=== PATIENT | female | born 1995 ===

== ENCOUNTER 2017-10-21 17:13 | Inpatient (IN) | payer OTHER ==
[~2017-10-21] VITALS: Ht 139.7 cm; Wt 108.0 kg
--- NOTE | ~2017-10-21 | OR ---
[facility] [address] [place], [place] [address] Draft DATE OF OPERATION: 10/21/2017 SURGEON: Noman Rust DO PREOPERATIVE DIAGNOSIS: Retained placenta. POSTOPERATIVE DIAGNOSIS: Retained placenta delivered. PROCEDURES PERFORMED: 1. A manual extraction of placenta. 2. Uterine curettage. SURGEON: Noman Rust D.O. DATA MANAGEMENT ENGINEER: Kb Chavez MD. ANESTHESIA: General. ESTIMATED BLOOD LOSS: 600 mL. SPECIMEN: Placenta. FINDINGS: Retained placenta was removed completely with manual digital extraction in gentle banjo. The uterine cavity fills smooth without any evidence of retained membranes or placental tissue. There is some slight thinning of the myometrium near the fundus in the midline. Hemostasis at the end of procedure and the fundus is firm. COMPLICATIONS: None. INDICATIONS: Ms. Brar is a pleasant 22-year-old, G2, now P2, female who presented PATIENT NAME: LADONNA BRAR OPERATIVE REPORT DATE OF : [birth year] REPORT #: [id number] PHYSICIAN: NOMAN RUST DO PCP: NO PRIMARY CARE PHYSICIAN REPORT IS CONFIDENTIAL AND NOT TO BE RELEASED WITHOUT AUTHORIZATION [facility] [address] [place], [place] [address] Draft in spontaneous labor and progressed and had an uncomplicated . Following delivery, the placenta did not easily deliver with expectant management or active management of the 3rd stage of the labor. With gentle traction, the cord avulsed from the placenta and manual extraction was attempted by myself and by Dr. Jordan in the delivery room. Bleeding was scant and the patient tolerated the procedure with an intrathecal procedure anesthetic. However, since manual extraction was not easily accomplished in the labor and delivery room, decision was made to proceed with curettage and manual extraction in the operating room. Risks, benefits, and alternatives were discussed in detail with the patient. Consents were signed and all questions were answered. TECHNIQUE: The patient was taken to the operating room where a time-out was performed to confirm correct patient and correct procedure. A 2nd large-bore IV was placed and type and screen was performed. Ancef 2 g were given preoperatively as well as tranexamic acid 1 g IV. Bleeding was scant. The patient was then prepped and draped in the dorsal lithotomy position with her feet in Yellofin stirrups. ICPs running and no preop heparin were indicated. A Olmos catheter had been previously inserted. A weighted speculum was placed in the vagina and the placental membranes were noted coming through the os. The surgeon's hand was placed through the os and into the uterine cavity and gentle dissection between the placenta and the decidua was attempted. However, this did not easily accomplished delivery of placenta. The placental membranes were grasped with ring forceps and gentle teasing of the membranes was attempted again with no significant progress. The placenta was then manually extracted with the surgeon's hand. The surgeon's hand was then placed again into the uterine cavity and additional placental tissue was noted in the midline of the fundus. This was gently extracted with the surgeon's hand. No additional placental tissue was noted. A banjo curette was then gently inserted into the uterine cavity in the surgeon's hand to assure intrauterine placement. Very gentle circumferential curettage was performed with a banjo that yielded no significant additional placental tissue. Her bimanual massage showed minimal bleeding and the fundus firmed nicely. Pitocin 50 units and 1 L of LR was administered to enhance uterine contractions and Cytotec 1000 mg was placed per rectum. Bleeding was minimal and the patient was then taken to the PACU in good and stable condition. Sponge, needle, and instrument count was correct x2 at the end of the procedure. Dr. Chavez was present and participated in all portions of the procedure. Noman Rust DO PATIENT NAME: FORDLADONNA OPERATIVE REPORT DATE OF : [birth year] REPORT #: [id number] PHYSICIAN: NOMAN RUST DO PCP: NO PRIMARY CARE PHYSICIAN REPORT IS CONFIDENTIAL AND NOT TO BE RELEASED WITHOUT AUTHORIZATION [address] [place] [address] Draft SHERICE/BETY /[id number] Copies: ~ PATIENT NAME: FORDLADONNA OPERATIVE REPORT DATE OF : [birth year] REPORT #: [id number] PHYSICIAN: NOMAN RUST DO PCP: NO PRIMARY CARE PHYSICIAN REPORT IS CONFIDENTIAL AND NOT TO BE RELEASED WITHOUT AUTHORIZATION
--- NOTE | 2017-10-21 23:36 | NUR ---
10/21/17 2336 Rosmery Emanuel 2317- PT ARRIVES TO PACU ON 6L VIA MASK. OXYGEN SAT HIGH 90'S TO 100% ON THIS. PT RESPONSIVE TO VOICE. PT IS COUGHING FREQUENTLY. ENCOURAGED PT TO CONTINUE TO COUGH. LR WITH 50 OF PITOCIN INFUSING. IV SITES WNL. 2320- PT HAS SMALL AMOUNT OF DRAINAGE. PT REPORTS NO NAUSEA OR PAIN. NATYJASMINA AT THE BEDSIDE LISTENING TO THE PT'S LUNGS. LUNGS CLEAR THROUGHOUT.
== END 2017-10-23 16:30 | disposition home or self-care (01) | DRG 767 ==
LOC: FBCO 17:13 → FBC 17:39 → MS 10-22 01:45 → FBC 10-22 01:46 → FBCO 10-22 09:43 → FBC 10-23 16:30
PROVIDERS: ADMIT Obstetrics & Gynecology
PROC: 10D17Z9 Manual Extraction of Products of Conception, Retained, Via Natural or Artificial Opening (ICD-10-PCS; 2017-10-21)
PROC: 10907ZC Drainage of Amniotic Fluid, Therapeutic from Products of Conception, Via Natural or Artificial Opening (ICD-10-PCS; 2017-10-21)
PROC: 3E0S3BZ Introduction of Anesthetic Agent into Epidural Space, Percutaneous Approach (ICD-10-PCS; 2017-10-21)
PROC: 00HU33Z Insertion of Infusion Device into Spinal Canal, Percutaneous Approach (ICD-10-PCS; 2017-10-21)
PROC: 10E0XZZ Delivery of Products of Conception, External Approach (ICD-10-PCS; principal; 2017-10-21 23:00)
DX: O70.1 Second degree perineal laceration during delivery (principal); Z37.0 Single live birth; D62 Acute posthemorrhagic anemia; O73.0 Retained placenta without hemorrhage; Z3A.39 39 weeks gestation of pregnancy; O90.81 Anemia of the puerperium
CPT/HCPCS: 00940; 01960; 01996; 36415; 85025; 85027; 86850; 86900; 86901; J0690; J1100; J2250; J2405; J2540; J2590; J2795; J3010; J7120

== ENCOUNTER 2024-07-06 06:50 | Day surgery (SDC) | payer OTHER ==
[2024-07-01 15:27] VITALS: BP 125/88
[~2024-07-06] VITALS: Ht 165.1 cm; Wt 98.2 kg
--- NOTE | ~2024-07-06 | OR ---
[address] [address] Draft DATE OF OPERATION: 07/06/2024 SURGEON: Noman Rust DO PREOPERATIVE DIAGNOSES: 1. Abnormal uterine bleeding. 2. Desires salpingectomy. 3. Desires Nexplanon removal. POSTOPERATIVE DIAGNOSES: 1. Abnormal uterine bleeding. 2. Desires salpingectomy. 3. Desires Nexplanon removal. 4. Asherman syndrome. 5. Dzxp-Scyl-Qqzvpi. PROCEDURES PERFORMED: 1. Hysteroscopic dilation and curettage. 2. Polypectomy. 3. Laparoscopic bilateral salpingectomy. 4. Nexplanon removal. REHABILITATION PROGRAM COORDINATOR: None. ANESTHESIA: General. ESTIMATED BLOOD LOSS: 10 mL. FLUIDS DEFICIT: 90 mL. SPECIMENS: 1. Endometrial curettings. 2. Bilateral fallopian tubes. COMPLICATIONS: None. PATIENT NAME: LADONNA BRAR OPERATIVE REPORT DATE OF : [birth year] REPORT #: [id number] PHYSICIAN: ONMAN RUST (BRITTANY) PCP: NO PRIMARY CARE PHYSICIAN REPORT IS CONFIDENTIAL AND NOT TO BE RELEASED WITHOUT AUTHORIZATION [facility] [address] [place] [address] Draft FINDINGS: Normal external genitalia with normal clitoris, urethral meatus, bilateral Likely's and Bartholin's glands. Normal vagina and cervix. On hysteroscopy, normal cervical os, cervical canal. The endometrium is thickened with multiple polyps. There is also a large central/fundal defect consistent with either Asherman syndrome or arcuate uterus. Polyps and endometrium were sampled and no intervention on the Asherman lesion was attempted. On laparoscopy, normal stomach, uterus, and ovaries bilaterally. Vtie-Ijtd-Lthzml violin string noted around the liver capsule and some light violin string type adhesions of the bilateral fallopian tubes to the mesosalpinx. Hemostasis after salpingectomy. Nexplanon was noted malpositioned, low in the right upper arm that was removed without difficulty. Complications none. INDICATIONS: Mrs. Brar is a very pleasant 29-year-old female with abnormal uterine bleeding, desiring salpingectomy and removal of Nexplanon. The patient was consented for hysteroscopy, D and C, polypectomy, laparoscopic bilateral salpingectomy, Nexplanon removal. Risks, benefits, and alternatives were discussed in detail with the patient. The patient understands and wished to proceed with the procedure. DESCRIPTION OF PROCEDURE: The patient was taken the OR. A time-out was performed to confirm correct patient, correct procedure. General anesthesia was adequately established. The patient was prepped and draped in the dorsal lithotomy position with feet in Yellofin stirrups. ICPs were on and running and no preoperative antibiotics or heparin was indicated. Olmos catheter was inserted. Weighted speculum was placed in the vagina and the anterior lip of the cervix was grasped with Allis clamp. The cervix was gently dilated using Hegar dilators. An operative hysteroscope was then placed in the cervical os and advanced under direct visualization to the uterine cavity. Normal os and cervical canal was noted. However, the uterine cavity was abnormal with thickened endometrium, bilateral scattered endometrial polyps, and central fundal defect consistent with either Asherman syndrome or arcuate uterus. MyoSure Lite device was selected and advanced into the uterine cavity. Circumferential curettage and polypectomy was performed. As discussed previously prior to the procedure with the patient and her mother, no attempt at correction of synechiae was performed. The hysteroscope was withdrawn and the surgeon's gloves were changed. Attention was turned to the abdomen. The base of the umbilicus was infiltrated with 0.25% Marcaine with epinephrine and a 5 mm stab incision was made with #11 blade at the base of the umbilicus. A 5 mm trocar was then placed under direct visualization without complication. The 5 mm personalized living assistant ports were placed in the right lower and left lower quadrants under direct visualization without complication. Survey of the abdomen and pelvis was performed. Fcbm-Aadu-Gaeums violin strings were noted on the liver capsule and some light adhesions were noted from the PATIENT NAME: LADONNA BRAR OPERATIVE REPORT DATE OF : [birth year] REPORT #: [id number] PHYSICIAN: NOMAN RUST (BRITTANY) DO PCP: NO PRIMARY CARE PHYSICIAN REPORT IS CONFIDENTIAL AND NOT TO BE RELEASED WITHOUT AUTHORIZATION [facility] [address] [place], [place] [address] Draft fallopian tube to the mesosalpinx. The remainder of the uterus, tubes, ovaries, and pelvis appeared normal. The left fallopian tube was grasped at the fimbriated end elevated and adhesions were gently lysed using the LigaSure device. The tube was then divided along the mesosalpinx with the LigaSure device and amputated at the cornu with excellent hemostasis. The fallopian tube was removed, sent to Pathology for further evaluation. The process was repeated on the right without difficulty and the pelvis was irrigated with excellent hemostasis appreciated. Pneumoperitoneum was reduced. Trocars were removed and trocar sites were repaired using 3-0 Vicryl Rapide. Attention was then turned to the right arm. The arm was prepped and draped sterilely. The end of the Nexplanon was palpated and a 2-3 mm stab incision was made using 11 blade. The end of the Nexplanon was coaxed through the incision, grasped with hemostats and removed without difficulty. The incision was ligated with 3-0 Vicryl Rapide and closed with Steri-Strips and Coban. The patient was then taken to PACU in good and stable condition after removal of the Olmos catheter. Sponge, needle, and instrument counts correct x2 at the end of the procedure. DO SHERICE Roque/MODL /[id number] Copies: ~ PATIENT NAME: LADONNA BRAR OPERATIVE REPORT DATE OF : [birth year] REPORT #: [id number] PHYSICIAN: NOMAN RUST DO (JD) PCP: NO PRIMARY CARE PHYSICIAN REPORT IS CONFIDENTIAL AND NOT TO BE RELEASED WITHOUT AUTHORIZATION
[~2024-07-06 06:50] MED LIST: LACTATED RINGER'S 1,000 ML IV SCH
[2024-07-06] MEDS ORDERED: LIDOCAINE HCL 1% 5 ML SDV INJ ONE (07:00)
[2024-07-06] MEDS ORDERED: IBLOOD GLUCOSE TEST STRIP 1 EA TEST VI PRN ×2 (07:00→10:15)
[2024-07-06 07:01] VITALS: BP 107/58
[2024-07-06] MEDS ORDERED: TYLENOL325 MG PO (07:03)
[2024-07-06] MEDS ORDERED: IBUPROFEN400 MG PO (07:04)
--- NOTE | 2024-07-06 07:50 | NUR ---
PT NOT AVAILABLE FOR VISIT. PROVIDED PRAYER.
[2024-07-06] MEDS ORDERED: ROCURONIUM BROMIDE 50 MG/5 ML SYR ONE (09:14)
[2024-07-06] MEDS ORDERED: LIDOCAINE HCL 2% 5 ML SDV ONE (09:14)
[2024-07-06] MEDS ORDERED: fentaNYL citrate 100 MCG/2 ML VIAL ONE ×2 (09:14→10:49)
[2024-07-06] MEDS ORDERED: KETOROLAC TROMETHAMINE 30 MG/ML VIAL ONE (09:14)
[2024-07-06] MEDS ORDERED: SUGAMMADEX SODIUM 200 MG/2 ML ML ONE (09:14)
[2024-07-06] MEDS ORDERED: ondansetron HCL 4 MG/2 ML VIAL ONE (09:14)
[2024-07-06] MEDS ORDERED: DEXAMETHASONE SOD PHOS 4 MG/ML VIAL ONE (09:14)
[2024-07-06] MEDS ORDERED: propofoL 200 MG/20 ML VIAL ONE (09:14)
[2024-07-06] MEDS ORDERED: ACETAMINOPHEN 1,000 MG/100 ML VIAL ONE (09:14)
[2024-07-06] MEDS ORDERED: MIDAZOLAM HCL 2 MG/2 ML VIAL ONE (09:15)
[2024-07-06] MEDS ORDERED: dexmedeTOMIDine HCl 200 MCG/2 ML VIAL ONE (09:16)
[2024-07-06] MEDS ORDERED: LIDOCAINE HCL 2% 20 MG/ML VIAL INJ ONE (09:17)
[2024-07-06] MEDS ORDERED: KETAMINE in NS 50 MG/5 ML SYR ONE (09:17)
[2024-07-06] MEDS ORDERED: PROCHLORPERAZINE EDISYLATE 10 MG/2 ML VIAL IV PRN (10:15)
[2024-07-06] MEDS ORDERED: droPERidol 5 MG/2 ML VIAL IV PRN (10:15)
[2024-07-06] MEDS ORDERED: NALOXONE HCL 0.4 MG SYR IV PRN ×2 (10:15→11:15)
[2024-07-06] MEDS ORDERED: fentaNYL citrate 50 MCG/ML SDV IV PRN (10:15)
[2024-07-06] MEDS ORDERED: HYDROmorphone HCL 1 MG/ML SYR IV PRN (10:15)
[2024-07-06] MEDS ORDERED: ondansetron HCL 4 MG/2 ML VIAL IV PRN (10:15)
[2024-07-06] MEDS ORDERED: LACTATED RINGER'S 1,000 ML IV ONE (10:26)
[2024-07-06] MEDS ORDERED: FAMOTIDINE 20 MG/ 2 ML VIAL IV PRN (11:15)
[2024-07-06] MEDS ORDERED: MAGNESIUM HYDROXIDE/AL HYDROX 30 ML CUP PO PRN (11:15)
[2024-07-06] MEDS ORDERED: SIMETHICONE 80 MG CHEW PO PRN (11:15)
[2024-07-06] MEDS ORDERED: HYDROCODONE/ACETA 5/325 TAB PO PRN (11:15)
--- NOTE | 2024-07-06 11:16 | NUR ---
07/06/24 1116 Sheets,Bere 1051 PT ARRIVED TO PACU WITH ORAL AIRWAY IN PLACE, RESP EVEN AND UNLABORED ON 6L VIA MASK. 1101 PT REACTIVE TO TACTILE STIMULI AND ORAL AIRWAY REMOVED. PT REORIENTED TO PACU AND DENIES CONCERNS, NO PAIN OR NAUSEA. WARM BLACKETS GIVEN PER REQUEST AND HOB INCREASED SLIGHTLY. 1102 O2 MASK REMOVED. DEEP BREATHING AND COUGHING ENCOURAGED. 1112 O2 DECREASED TO 88% WHILE ASLEEP, 2L NC PLACED. PT WAKES EASILY AND DEEP BREATHING ENCOURAGED. O2 INCREASED TO MID 90S.
[2024-07-06 11:33] VITALS: BP 107/80
--- NOTE | 2024-07-06 12:12 | NUR ---
1130 PT ARRIVED TO DAY SURGERY RM 12 VIA STREACHER. PT SITTING UPRIGHT, AWAKE AND ORIENTED. PT REMOVED FROM 2L O2 VIA NASAL CANULLA DUE TO PT OXGYEN AT 100%. PT BREATHING EQUAL AND UNLABORED. PT REPORTS NO PAIN AT THIS TIME. IV ASSESSED. VITALS TAKEN. PT RESTING IN BED WITH WATER AT BEDSIDE AND CRACKERS. PT BED LOW AND LOCKED AND CALL LIGHT WITHIN REACH. 1210 CHECKED ON PT. PT REPORTING NO PAIN OR NAUSEA AT THIS TIME. PT REPORTS NO URGE TO URINATE AT THIS TIME. WATER REFILLED. PT MOM AT BEDSIDE. BED LOW AND LOCKED AND CALL LIGHT WITHIN REACH.
[2024-07-06 12:29] VITALS: BP 115/74
--- NOTE | 2024-07-06 12:33 | NUR ---
1230 HOURLY ROUNDING DONE WITH PT. VITALS TAKEN. IV ASSESSED. PT REPORTS NO PAIN OR NAUSEA AT THIS TIME. PT REPORTS NOT MUCH URGE TO URINATE YET. CALL LIGHT WITHIN REACH. PERSONAL ITEMS WITHIN REACH. PT MOM IN ROOM.
[2024-07-06] MEDS ORDERED: SIMETHICONE 80 MG CHEW PO SCH (13:00)
--- NOTE | 2024-07-06 13:00 | NUR ---
1235 PT REPORTS WANTING TO ATTEMPT TO URINATE. PT ABLE TO AMBULATE TO BATHROOM WITH STEADY GAIT. PT ABLE TO VOID 100 MLS OF CLEAR YELLOW URINE. PT ABLE TO AMBULATE BACK TO ROOM. PT GETTING CHANGED WITH ASSISTANCE OF PT MOM. 1245 PT IS DRESSED. IV REMOVED FOR DISCHARGE. DISCHARGE INFORMATION GONE OVER WITH PT AND MOTHER. NO QUESTIONS AT THIS TIME. 1253 PT DISCHARGED FROM DAY SURGERY VIA WHEELCHAIR TO THE FRONT OF THE HOSPITAL TO PT'S MOTHER'S CAR.
[2024-07-06] MEDS ORDERED: SEVOFLURANE 250 ML BTL INH ONE (15:57)
--- NOTE | 2024-07-08 16:56 | PATH ---
[facility] [address] [place], [place] [address] Signed SPECIMEN(S): A ENDOMETRIAL CURETTINGS AND POLYP SPECIMEN(S): B FALLOPIAN TUBES, BILATERAL SPECIMEN SOURCE: A. ENDOMETRIAL CURETTINGS AND POLYP B. FALLOPIAN TUBES, BILATERAL CLINICAL HISTORY: AUB; endometrial polyp. FINAL PATHOLOGIC DIAGNOSIS: A. Endometrial curettings and polyp: - Proliferative endometrium with focal polypoid features, negative for hyperplasia or atypia. - Segments of benign myometrium. B. Fallopian tubes, bilateral: - Two segments of benign fimbriated oviduct. JVR:senia MICROSCOPIC EXAMINATION: Histologic sections of all submitted blocks are examined by light microscopy. These findings, together with the gross examination, support the pathologic diagnosis. GROSS DESCRIPTION: A. The specimen, labeled and designated "Zonia, endometrial curettings and polyp," is received in formalin and consists of multiple fragments of soft resendez-red tissue and blood measuring 3.0 x 2.5 x 0.3 cm in aggregate. Entirely submitted in (A1). B. The specimen, labeled and designated "Zonia, bilateral fallopian tubes," is received in formalin and consists of two undesignated fallopian tubes. Both show fimbria and violaceus and smooth serosa. The first tube measures 5.5 x 0.8 cm. The second fallopian tube measures 5.0 x 0.8 cm. Sectioning through both fallopian tubes is grossly unremarkable. Cassette Summary: (B1) first fallopian tube, customer service representative teller sections (B2) second fallopian tube, customer service representative teller sections JS (under the direct supervision of a pathologist) The Gross Description was prepared using a voice recognition system. The report was reviewed for accuracy; however, sound-alike word errors, addition and/or PATIENT NAME: LADONNA YOUNGBLOOD PATHOLOGY DATE OF : [birth year] REPORT #: [id number] PHYSICIAN: NICOL CHAWLA PCP: NO PRIMARY CARE PHYSICIAN REPORT IS CONFIDENTIAL AND NOT TO BE RELEASED WITHOUT AUTHORIZATION [facility] [address] [facility] [place], [place] [address] Signed deletions may occur. If there is any question about this report, please contact Client Services. PERFORMING LABORATORY: Technical component was performed by [facility], [address] [place] [address] (CLIA# [id number]). Professional interpretation was performed by [facility], [address] [place] [id number] (CLIA#: [id number]). Diagnostician: Suhail Jarvis MD Pathologist Electronically Signed 07/08/2024 Copies: ~ PATIENT NAME: LADONNA YOUNGBLOOD PATHOLOGY DATE OF : [birth year] REPORT #: [id number] PHYSICIAN: NICOL PATHOLOGY PCP: NO PRIMARY CARE PHYSICIAN REPORT IS CONFIDENTIAL AND NOT TO BE RELEASED WITHOUT AUTHORIZATION
== END 2024-07-06 12:53 | disposition home or self-care (01) ==
LOC: DS 06:50 → OPS 06:50 → DS 09:30 → OPS 12:53
PROVIDERS: ATTEND Obstetrics & Gynecology
PROC: 0JPV0HZ Removal of Contraceptive Device from Upper Extremity Subcutaneous Tissue and Fascia, Open Approach (ICD-10-PCS; 2024-07-06)
PROC: 0UB98ZZ Excision of Uterus, Via Natural or Artificial Opening Endoscopic (ICD-10-PCS; principal; 2024-07-06 09:30)
PROC: 0UT74ZZ Resection of Bilateral Fallopian Tubes, Percutaneous Endoscopic Approach (ICD-10-PCS; 2024-07-06 09:30)
DX: N93.9 Abnormal uterine and vaginal bleeding, unspecified (principal); N85.6 Intrauterine synechiae; N84.0 Polyp of corpus uteri; T85.628A Displacement of other specified internal prosthetic devices, implants and grafts, initial encounter; Y82.8 Other medical devices associated with adverse incidents; F17.210 Nicotine dependence, cigarettes, uncomplicated; Z80.49 Family history of malignant neoplasm of other genital organs
CPT/HCPCS: 00952; 93005; 93010; J0131; J1100; J1885; J2003; J2250; J2405; J2704; J3010; J3490; J7121